=== PATIENT | male | born 1995 | race American Indian/Alaskan Native ===

== ENCOUNTER 2016-05-16 11:53 | Emergency (ER) | payer OTHER ==
[2016-05-16 16:33] VITALS: BP 136/87
--- NOTE | 2016-05-16 16:47 | Emergency Department Report ---
HPI - General Chief Complaint: Neuro Symptoms/Deficit Time Seen by Provider: 05/16/16 16:31 - HPI HPI: Room 33 The patient is a 20-year-old male presenting with a chief complaint left facial weakness. The patient states 3 days ago developed pain behind his left jaw. The patient denied any history of preceding trauma. Patient states he awakened this morning at approximately 06:45 and noticed his left face was weak and numb. The patient denies history of headache, dysarthria or dysphagia. Patient denies any history of extremity numbness or weakness. Patient denies any previous episodes of same Location: Left face Duration: [see above] Quality: Numbness and weakness Severity: Moderate Modifying factors: [see above] Context: [see above] Mode of transportation: Unknown ED Past Medical Hx - Past Medical History Previous Medical History?: No - Surgical History Additional Surgical History: HERNIA REPAIR (INFANT) - Family History Family history: no significant - Social History Smoking Status: Never Smoker Substance Use Type: Alcohol - Medications Home Medications: Home Medications Medication Instructions Recorded Confirmed Last Taken Type Polyvinyl Alcohol [Artificial 2 drops OS TID #15 ml 05/16/16 Unknown Rx Tears] Valacyclovir HCl [Valtrex] 1,000 mg PO TID #21 tablet 05/16/16 Unknown Rx predniSONE [Deltasone] 80 mg PO QDAY #28 tab 05/16/16 Unknown Rx ED Review of Systems ROS: Stated complaint: POSS STROKE Other details as noted in HPI Comment: All other systems reviewed and negative Constitutional: denies: chills, fever Eyes: denies: eye pain, eye discharge, vision change ENT: denies: ear pain, throat pain Respiratory: denies: cough, shortness of breath, wheezing Cardiovascular: denies: chest pain, palpitations Endocrine: no symptoms reported Gastrointestinal: denies: abdominal pain, nausea, diarrhea Genitourinary: denies: urgency, dysuria Musculoskeletal: denies: back pain, joint swelling, arthralgia Skin: denies: rash, lesions Neurological: weakness, numbness Psychiatric: denies: anxiety, depression Hematological/Lymphatic: denies: easy bleeding, easy bruising Physical Exam - Physical Exam Vital Signs: Vital Signs 05/16/16 05/16/16 12:52 16:32 Temperature 98.5 F Pulse Rate 85 75 Respiratory 17 16 Rate Blood Pressure 132/79 Blood Pressure 136/87 [Left] O2 Sat by Pulse 99 98 Oximetry Physical Exam: GENERAL: The patient is well-developed well-nourished male lying on stretcher not appearing to be in acute distress. [] HEENT: Normocephalic. Atraumatic. Extraocular motions are intact. NECK: Supple. Trachea midline CHEST/LUNGS: Clear to auscultation. There is no respiratory distress noted. HEART/CARDIOVASCULAR: Regular. There is no tachycardia. There is no gallop rub or murmur. ABDOMEN: Abdomen is soft, nontender. Patient has normal bowel sounds. There is no abdominal distention. SKIN: There is no rash. There is no edema. There is no diaphoresis. NEURO: The patient is awake, alert, and oriented. The patient is cooperative. Face symmetric small with drooping on the left. There is no forehead sparing on the left. Otherwise cranial nerves II through XII grossly intact. Normal sensation throughout. 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 There is no drift. Moves all extremities well. The patient has normal speech MUSCULOSKELETAL: There is no evidence of acute injury. ED Course Vital Signs 05/16/16 05/16/16 12:52 16:32 Temperature 98.5 F Pulse Rate 85 75 Respiratory 17 16 Rate Blood Pressure 132/79 Blood Pressure 136/87 [Left] O2 Sat by Pulse 99 98 Oximetry ED Medical Decision Making - Differential Diagnosis Solis's palsy, CVA Critical care attestation.: If time is entered above; I have spent that time in minutes in the direct care of this critically ill patient, excluding procedure time. ED Disposition Clinical Impression: Solis's palsy Disposition: DISCHARGED TO HOME OR SELFCARE Is pt being admited?: No Does the pt Need Aspirin: No Condition: Fair Instructions: Solis Palsy (ED) Additional Instructions: Your fingerstick blood glucose today was 87. Return to the emergency department immediately should you develop worsening symptoms, fever, inability to tolerate food or liquid or any other concerns. Prescriptions: Polyvinyl Alcohol [Artificial Tears] 2 drops OS TID #15 ml predniSONE [Deltasone] 80 mg PO QDAY #28 tab Valacyclovir HCl [Valtrex] 1,000 mg PO TID #21 tablet Referrals: PRIMARY CARE, [Primary Care Provider] - 3-5 Days KEARA BHAT MD [Staff Physician] - 3-5 Days (Dr Bhat is a neurologist. Please follow up with him if you're unable to follow up with her primary physician) Time of Disposition: 16:47
== END 2016-05-16 17:07 | disposition home or self-care (01) ==
LOC: ED 11:53
DX: G51.0 Bell's palsy (principal)
CPT/HCPCS: 82962; 99282